=== PATIENT | male | born 1995 | race American Indian/Alaskan Native ===

== ENCOUNTER 2020-08-09 19:45 | Emergency (ER) | payer OTHER ==
--- NOTE | 2020-08-09 21:31 | XRay Report ---
LEFT WRIST 3 VIEW(S) INDICATION / CLINICAL INFORMATION: left wrist pain COMPARISON: None available. FINDINGS: BONES / JOINT(S): No acute fracture or subluxation. No significant arthritis. SOFT TISSUES: Soft tissue laceration with subcutaneous gas along the volar and radial aspect of wrist ADDITIONAL FINDINGS: No radiopaque foreign body Signer Name: Blaze Morel MD Signed: 08/09/2020 9:26 PM Workstation Name: [id number]
[2020-08-09] MEDS ORDERED: DIPHtheria,PERTUSSIS(ACELL),TETANUS VACCINE/PF 0.5 ML VIAL IM ONE (22:57)
[2020-08-09] MEDS ORDERED: LIDOCAINE (1%) 10 MG/1 ML VIAL 20 ML MDV INFILTRATI ONE (22:57)
[2020-08-09] MEDS ORDERED: IBUPROFEN 800 MG TAB PO ONE (22:57)
[2020-08-09] MEDS ORDERED: NEOMY 3.5 MG/BACIT 400 UNITS/POLY B 5000 UNITS/GM OINT PACKET TP ONE ×3 (23:53→23:54)
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
[2020-08-10 00:50] VITALS: BP 123/61
== END 2020-08-10 00:52 | disposition home or self-care (01) ==
LOC: ED 19:45
DX: S61.512A Laceration without foreign body of left wrist, initial encounter (principal); S60.512A Abrasion of left hand, initial encounter; Z79.1 Long term (current) use of non-steroidal anti-inflammatories (NSAID); Z79.899 Other long term (current) drug therapy; W26.8XXA Contact with other sharp object(s), not elsewhere classified, initial encounter; Y93.89 Activity, other specified; Y92.89 Other specified places as the place of occurrence of the external cause; Y99.8 Other external cause status
CPT/HCPCS: 12004; 73110; 90471; 90715; 99284; A6250